=== PATIENT | female | born 1990 | race Caucasian/White ===

== ENCOUNTER 2017-01-30 08:18 | Outpatient (CLI) | payer MEDICAID ==
[2017-01-30 13:20] LABS: APPEARANCE,URINE SLIGHTLY-CLOUDY; BILIRUBIN,URINE NEGATIVE (NEGATIVE); GLUCOSE, URINE NEGATIVE (NEGATIVE); KETONES,URINE NEGATIVE (NEGATIVE); LEUKOCYTE ESTERASE,URINE TRACE (NEGATIVE); NITRITE,URINE NEGATIVE (NEGATIVE); PROTEIN,URINE NEGATIVE (NEGATIVE); URINE SPECIFIC GRAVITY 1.009; UROBILINOGEN,URINE NEGATIVE mg/dL (<2.0)
[2017-01-30 13:44] LABS: URINE BARBITURATES SCREEN NEGATIVE; URINE METHADONE SCREEN NEGATIVE; URINE OPIATES LOW NEGATIVE; URINE PHENCYCLIDINE SCREEN NEGATIVE
== END 2017-01-30 13:40 | disposition home or self-care (01) ==
LOC: LC 08:18
PROVIDERS: ATTEND Obstetrics & Gynecology
DX: O48.0 Post-term pregnancy (principal); Z3A.40 40 weeks gestation of pregnancy
CPT/HCPCS: 59025; 80307; 81005

== ENCOUNTER 2017-02-01 09:38 | Inpatient (IN) | payer MEDICAID ==
--- NOTE | 2017-02-01 09:47 | Non Stress Test Report ---
Non Stress Test Datetime Report Generated by CPN: 02/01/2017 09:47 DEMOGRAPHIC EGA NST: 40.2 INDICATION Indication for Study: Other Indication for Study (NST) Other: Rule out labor VITAL SIGNS Temperature - NST: 97.7 Pulse - NST: 96 RESP - NST: 19 NBPSYS NST: 133 NBPDIA NST: 82 MONITORING Monitor Explained: Monitor Explained; Test Explained; Patient Verbalized Understanding Time on Monitor: 01/30/2017 09:30 Time off Monitor: 01/30/2017 09:55 NST Duration: 25 NST INTERVENTIONS NST Interventions: PO Hydration Physician Notified NST: C. Schroeder, CNM BABY A: [id number] BABY A Movement : Present Contraction Frequency : x0 FHR Baseline : 125 Accelerations : 15X15 Decelerations : None Variability : Moderate 6-25bpm NST Review: Meets Criteria for Reactive NST NST Review and Verified By : Regina Gaines RNC NST Results: Reactive NST REPORT Report Trigger: Send Report
[2017-02-01] MEDS ORDERED: RINGERS SOLUTION,LACTATED 1,000 ML IV ONE (11:54)
[2017-02-01] MEDS ORDERED: RINGERS SOLUTION,LACTATED 1,000 ML IV PRN (11:54)
[2017-02-01] MEDS ORDERED: RINGERS SOLUTION,LACTATED 300 ML IV ONE (11:57)
[2017-02-01] MEDS ORDERED: OXYTOCIN/NORMAL SALINE 20 UNIT/1,000 ML RTUINJ ONE ×2 (13:19→19:15)
[2017-02-01 13:21] LABS: ABSOLUTE EOSINOPHILS # (AUTO) 0.1 10^3/uL (0.0-0.6); ABSOLUTE LYMPHOCYTES (AUTO) 1.5 10^3/uL (0.5-4.7); ABSOLUTE MONOCYTES (AUTO) 0.5 10^3/uL (0.1-1.4); ABSOLUTE NEUT (AUTO) 3.4 10^3/uL (1.7-8.2); BASOPHILS % (AUTO) 0.5 % (0-2); EOSINOPHILS % (AUTO) 1.2 % (0-6); HEMATOCRIT 34.5 % (36.0-47.0); HEMOGLOBIN 11.4 g/dL (12.0-15.5); HGB HCT DIFFERENCE -0.3; LYMPHOCYTES % (AUTO) 26.6 % (13-45); MEAN CORPUSCULAR HEMOGLOBIN 25.3 pg (27.0-33.4); MEAN CORPUSCULAR VOLUME 77 fl (80-97); MONOCYTES % (AUTO) 9.6 % (3-13); RED BLOOD COUNT 4.48 10^6/uL (3.72-5.28); RED CELL DISTRIBUTION WIDTH 15.2 % (11.5-14.0); SEGMENTED NEUTROPHILS % (AUTO) 62.1 % (42-78); WHITE BLOOD COUNT 5.5 10^3/uL (4.0-10.5)
[2017-02-01] MEDS: RINGERS SOLUTION,LACTATED 1,000 ML IV PRN ×2 (13:25→20:58)
[2017-02-01 13:31] LABS: APPEARANCE,URINE SLIGHTLY-CLOUDY; BILIRUBIN,URINE NEGATIVE (NEGATIVE); GLUCOSE, URINE NEGATIVE (NEGATIVE); KETONES,URINE NEGATIVE (NEGATIVE); LEUKOCYTE ESTERASE,URINE NEGATIVE (NEGATIVE); NITRITE,URINE NEGATIVE (NEGATIVE); PROTEIN,URINE NEGATIVE (NEGATIVE); URINE SPECIFIC GRAVITY 1.011; UROBILINOGEN,URINE NEGATIVE mg/dL (<2.0)
[2017-02-01 13:47] LABS: URINE BARBITURATES SCREEN NEGATIVE; URINE METHADONE SCREEN NEGATIVE; URINE OPIATES LOW NEGATIVE; URINE PHENCYCLIDINE SCREEN NEGATIVE
[2017-02-01] MEDS ORDERED: EPHEDRINE SULFATE INJ 50 MG/1 ML AMPULE ONE (16:49)
[2017-02-01] MEDS ORDERED: FENTANYL CITRATE INJ/PF 100 MCG/2 ML AMPUL ONE (16:49)
[2017-02-01] MEDS ORDERED: BUPIVACAINE HCL 0.25 % INJ/PF (2.5 MG/1 ML) 30 ML VIAL ONE (16:50)
[2017-02-01] MEDS ORDERED: FENTANYL/BUPIVACAINE/NS/PF 200 MCG/100 ML RTUINJ EPI ONE (16:50)
[2017-02-01] MEDS ORDERED: PHENYLEPHRINE HCL INJ/PF 10 MG/1 ML SDV ONE (16:50)
[2017-02-01] MEDS ORDERED: MISOPROSTOL 0.2 MG TABLET ONE (19:15)
[2017-02-01] MEDS ORDERED: LIDOCAINE 1% INJ-PF (10 MG/ML) 30 ML SDV ONE (19:15)
[2017-02-01] MEDS ORDERED: DIPH/PERTUSS(ACELL)/TETANUS VAC/PF 0.5 ML SYR (>=10YO) IM PRN (20:11)
[2017-02-01] MEDS ORDERED: ZOLPIDEM TARTRATE 5 MG TABLET PO PRN (20:11)
[2017-02-01] MEDS ORDERED: BENZOCAINE/MENTHOL AEROSOL SPRAY 56 ML TOP PRN (20:11)
[2017-02-01] MEDS ORDERED: OXYTOCIN/NORMAL SALINE 20 UNIT/1,000 ML RTUINJ IV PRN (20:11)
[2017-02-01] MEDS ORDERED: DIBUCAINE 1% OINTMENT 28 GM TP PRN (20:11)
[2017-02-01] MEDS ORDERED: MEASLES,MUMPS&RUBELLA VACC/PF 0.5 ML VIAL SUBCUT PRN (20:11)
[2017-02-01] MEDS ORDERED: ACETAMINOPHEN WITH CODEINE #3 TABLET PO PRN ×2 (20:11)
[2017-02-01] MEDS ORDERED: LIDOCAINE 2%/EPINEPHRINE INJ 20 ML VIAL ONE (20:21)
[2017-02-01] MEDS ORDERED: SODIUM BICARBONATE 8.4% INJ 50 MEQ/50 ML DISP.SYRIN ONE (20:21)
[2017-02-01] MEDS ORDERED: MIDAZOLAM 2 MG/2 ML INJ ONE (20:40)
--- NOTE | 2017-02-01 22:49 | Delivery Summary ---
Del Sum A-C Datetime Report Generated by CPN: 02/01/2017 22:48 DELIVERY PERSONNEL DELIVERY PERSONNEL: [id number] Delivery Doctor:: Peyton Oliveira CNM Labor and Delivery Nurse:: Pamela Crawford RNnetwork engineer Nurse:: Julianna Warner RN Neonatal Nurse Practitioner:: JAHAIRA Du Nursery Nurse:: Katlin Adamson RN MATERNAL INFORMATION Delivery Anesthesia: Epidural Medications After Delivery: Pitocin Drip 20 Units/1000ml NSS Estimated Blood Loss (ml): 350 Maternal Complications: None Provider Comments: of viable male infant. Head, body, and shoulders delivered without difficulty. Infant with spontaneous cry and repsirations to maternal abdomen. Cord clamped X2, cut free by pts after 2 min delay. Spontaneous delivery of placenta, via durbin mechanism appears intact, 3 VC. Vagina and perineum inspected, deep vaginal laceration noted, Dr. Cabrera to bedside for repair. Hemostasis acheived with external fundal massage and IV pitocin. LABOR SUMMARY EDC: 01/28/2017 00:00 No. Babies in Womb: 1 Attempted: No Labor Anesthesia: Epidural LABOR INFORMATION Reason for Induction: Not Applicable Onset of Labor: 02/01/2017 10:59 Complete Dilatation: 02/01/2017 19:24 Oxytocin: Augmentation Group B Beta Strep: NEGATIVE Antibiotics # of Doses: N/A Antibiotics Time of Last Dose: N/A Name of Antibiotic Given: N/A Steroids Given: None Reason Steroids Not Administered: Not Applicable MEMBRANES Membranes Rupture Method: Spontaneous Rupture of Membranes: 02/01/2017 10:45 Length of Rupture (hr): 8.95 Amniotic Fluid Color: Bloody Amniotic Fluid Amount: Small Amniotic Fluid Odor: Normal STAGES OF LABOR Stage 1 hr: 8 Stage 1 min: 25 Stage 2 hr: 0 Stage 2 min: 18 Stage 3 hr: 0 Stage 3 min: 4 Total Time in Labor hr: 8 Total Time in Labor min: 47 VAGINAL DELIVERY Episiotomy: None Laceration Extension: Third Degree Laceration Type: Vaginal Laceration Repair: Yes Laceration Repair Note: repaired by Dr. Cabrera, using 2-0 chromic in usual fashionusing lidocaine for anesthisia and epidural, Anesthesologist to bedside to assist with pain control. Sponge Count Correct: N/A; Yes Sharps Count Correct: Yes CSECTION DELIVERY Primary Indication: N/A Secondary Indication: N/A CSection Incidence: N/A Labor: N/A Elective: N/A CSection Incision: N/A BABY A INFORMATION Infant Delivery Date/Time: 02/01/2017 19:42 Method of Delivery: Vaginal Born in Route : No : N/A Forceps: N/A Vacuum Extraction: N/A Shoulder Dystocia : No PRESENTATION/POSITION BABY A Presentation: Cephalic Cephalic Presentation: Vertex Vertex Position: Right Occipital Anterior Breech Presentation: N/A PLACENTA INFORMATION BABY A Placenta Delivery Time : 02/01/2017 19:46 Placenta Method of Delivery: Spontaneous Placenta Status: Delivered SCORES BABY A Heart Rate 1 min: >100 bpm Resp Effort 1 min: Good Cry Reflex Irritability 1 min: Cough or Sneeze or Pulls Away Muscle Tone 1 min: Active Motion Color 1 min: Body [place], Extremities Blue Resuscitation Effort 1 min: N/A SCORE 1 MIN: 9 Heart Rate 5 min: >100 bpm Resp Effort 5 min: Good Cry Reflex Irritability 5 min: Cough or Sneeze or Pulls Away Muscle Tone 5 min: Active Motion Color 5 min: Body [place], Extremities Blue Resuscitation Effort 5 min: N/A SCORE 5 MIN: 9 INFANT INFORMATION BABY A Gestational Age at Delivery: 40.4 Gestational Status: Full Term- 39- 40.6 Weeks Outcome : Liveborn Infant Condition : Stable Infant Sex: Male IDENTIFICATION BABY A Infant Verification Date/Time: 02/01/2017 19:49 ID Band Number: [id number] Mother's Name Verified: Yes Infant RN Verifying : RN Yessi Additional Verifying Personnel: [employer] WEIGHT/LENGTH BABY A Infant Birthweight (gm): 3475 Weight (lb): 7 Infant Weight (oz): 11 Length (in): 20.00 Infant Length (cm): 50.80 CORD INFORMATION BABY A No. Cord Vessels: 3 Nuchal Cord : N/A Cord Blood Taken: Yes-For Storage (Mom's Blood type +) Suction: None ASSESSMENT BABY A Infant Complications: None Physical Findings at Delivery: Within Normal Limits Infant Respirations: Appears Normal Skin to Skin: Yes Skin to Skin Time (min): 25 BABY B INFORMATION : N/A SIGNATURES Assignment: Daphnie Cabrera MD Signature: with User ID: [email or web address] : with User ID: [email or web address]
--- NOTE | 2017-02-01 23:21 | Admission Physical ---
Datetime Report Generated by CPN: 02/01/2017 23:21 CURRENT ADMISSION Hx Assessment: The History has been Reviewed and is Current Chief Complaint: Sent from OB Office for Evaluation and Treatment - Please Specify Chief Complaint Other: for nst, srom while here Indication for Induction: Post Dates Admit Plan: Admit to Unit; Initiate Labor Augmentation Protocol ALLERGIES Medication Allergies: No Medication Allergies: No Known Allergies (01/30/2017) Medication Allergies: No Known Allergies (08/26/2012) Latex: No Latex Allergies OBSTETRICAL HISTORY EDC: 01/28/2017 00:00 : 1 Para: 0 Gestational Diabetes: No Rh Sensitization: No Incompetent Cervix: No RYLAN: No Infertility: No ART Treatment: No Uterine Anomaly: No IUGR: No Hx Previous C/S: No Macrosomia: No Hx Loss/Stillborn: No PIH: No Hx : No Placenta Previa/Abruption: No Depression/PP Depression: No PTL/PROM: No Post Hemorrhage: No Obstetrical History Comments: G1 current SEE RECORDS Alcohol: No Marijuana : No Cocaine: No Other Illicit Drugs: No Cigarettes: Never Smoker. [id number] MEDICAL HISTORY Diabetes: No Blood Transfusion: No Pulmonary Disease (Asthma, TB): No Breast Disease: No Hypertension: No Industrial Custodian Surgery: No Heart Disease: No Hosp/Surgery: No Autoimmune Disorder: No Anesthetic Complications: No Kidney Disease: No Abnormal Pap Smear: No Neuro/Epilepsy: No Psychiatric Disorders: No Other Medical Diseases: No Hepatitis/Liver Disease: No Significant Family History: No Varicosities/Phlebitis: No Trauma/Violence : No Thyroid Dysfunction: No INFECTIOUS HISTORY Gonorrhea: No Genital Herpes: No Chlamydia: No Tuberculosis: No Syphilis: No Hepatitis: No HIV/AIDS Exposure: No Rash or Viral Illness: No HPV: No PHYSICAL EXAM General: Normal HEENT: Normal Neurologic: Normal Thyroid: Deferred Heart: Normal Lungs: Normal Breast: Normal Back: Normal Abdomen: Normal Genitourinary Exam: Normal Extremities: Normal DTRs: Normal Pelvic Type: Adequate Vital Signs: Reviewed VAGINAL EXAM Dilatation: 4 Effacement: 80 Station: -1 Contraction Comments: irregular FETUS A EGA: 40.4 Monitoring: External US FHR- Baseline: 120 Variability: Moderate 6-25bpm Accelerations: 15X15 Decelerations: None FHR Category: Category I Estimated Weight (gm): 3800 Presentation: Vertex Admit Comment: Pt here for repeat nst, was reactive and pt was going to be discharge, SROM, clear fluid with bloody show, + fern Admit to L _ D Pitocin Pt may have epidural GBS neg PLANS FOR LABOR AND DELIVERY Labor and Delivery: None Pain Management: Epidural Feeding Preference: Breast Benefit of Breast Feed Discussed: Yes Circumcision: No INFORMED CONSENT Assignment: Daphnie Cabrera MD Signature: with User ID: [email or web address] : with User ID: [email or web address]
[2017-02-02] MEDS: IBUPROFEN 800 MG TABLET PO SCH ×4 (00:19→21:25)
[2017-02-02 07:59] LABS: HEMATOCRIT 28.9 % (36.0-47.0); HEMOGLOBIN 9.7 g/dL (12.0-15.5); HGB HCT DIFFERENCE 0.2; MEAN CORPUSCULAR HEMOGLOBIN 25.6 pg (27.0-33.4); MEAN CORPUSCULAR HGB CONC 33.4 g/dL (32.0-36.0); MEAN CORPUSCULAR VOLUME 77 fl (80-97); RED BLOOD COUNT 3.78 10^6/uL (3.72-5.28); WHITE BLOOD COUNT 6.6 10^3/uL (4.0-10.5)
[2017-02-02] MEDS: PRENATAL VITAMIN W-O CA NO5/FE FUMARATE/FA CAPSULE PO SCH (09:47)
[2017-02-02] MEDS: DOCUSATE SODIUM 100 MG CAPSULE PO SCH ×2 (09:47→18:09)
[2017-02-02] MEDS: FERROUS SULFATE 325 MG TABLET PO SCH ×2 (09:48→18:09)
[2017-02-02] MEDS: SENNOSIDES/DOCUSATE 8.6-50 MG 1 EACH TABLET PO SCH (09:48)
--- NOTE | 2017-02-02 12:09 | PDOC PROGRESS REPORT ---
Subjective-OB Subjective: Post Delivery Day: 1 24 year old. Denies any needs at this time, lochia is stable, pain well controlled, voiding without difficulty. Physical Exam (OB) Vital Signs: Temp Pulse Resp BP Pulse Ox 97.7 F 64 16 125/67 100 02/02/17 07:39 02/02/17 07:39 02/02/17 07:39 02/02/17 07:39 02/02/17 07:39 Intake & Output 02/01/17 02/02/17 02/03/17 06:59 06:59 06:59 Intake Total 250 300 Balance 250 300 Weight 98 kg - Lochia Lochia Amount: Scant < 10 ml Lochia Color: Rubra/Red - Abdomen Description: Tender, Soft Hernia Present: No Fundal Description: Firm, Midline Fundal Height: u/u - u/2 Objective-Diagnostic Laboratory: 02/02/17 07:16 02/01/17 02/01/17 02/01/17 12:15 12:55 12:55 WBC 5.5 RBC 4.48 Hgb 11.4 L Hct 34.5 L MCV 77 L MCH 25.3 L MCHC 33.0 RDW 15.2 H Plt Count 199 Seg Neutrophils % 62.1 Lymphocytes % 26.6 Monocytes % 9.6 Eosinophils % 1.2 Basophils % 0.5 Absolute Neutrophils 3.4 Absolute Lymphocytes 1.5 Absolute Monocytes 0.5 Absolute Eosinophils 0.1 Absolute Basophils 0.0 Urine Color YELLOW Urine Appearance SLIGHTLY-CLOUDY Urine pH 5.0 Ur Specific [place] 1.011 Urine Protein NEGATIVE Urine Glucose (UA) NEGATIVE Urine Ketones NEGATIVE Urine Blood MODERATE H Urine Nitrite NEGATIVE Ur Leukocyte Esterase NEGATIVE Blood Type A POSITIVE Antibody Screen NEGATIVE 02/02/17 07:16 WBC 6.6 RBC 3.78 Hgb 9.7 L Hct 28.9 L MCV 77 L MCH 25.6 L MCHC 33.4 RDW 15.0 H Plt Count 171 Seg Neutrophils % Lymphocytes % Monocytes % Eosinophils % Basophils % Absolute Neutrophils Absolute Lymphocytes Absolute Monocytes Absolute Eosinophils Absolute Basophils Urine Color Urine Appearance Urine pH Ur Specific [place] Urine Protein Urine Glucose (UA) Urine Ketones Urine Blood Urine Nitrite Ur Leukocyte Esterase Blood Type Antibody Screen Assessment and Plan(PN) - Assessment and Plan (1) Vaginal delivery Is this a current diagnosis for this admission?: Yes Plan: routine pp care (2) Acute blood loss anemia Is this a current diagnosis for this admission?: Yes Plan: ferrous sulfate (3) Vaginal laceration Qualifiers: Encounter type: initial encounter Qualified Code(s): S31.41XA - Laceration without foreign body of vagina and vulva, initial encounter Is this a current diagnosis for this admission?: Yes Plan: stool softners on d/c - Time Spent with Patient Time with patient: Less than 15 minutes Critical Time spent with patient: Less than 15 minutes Medications reviewed and adjusted accordingly: Yes - Disposition Anticipated Discharge: Home Within: within 24 hours
[2017-02-03] MEDS: IBUPROFEN 800 MG TABLET PO SCH ×2 (05:55→13:41)
[2017-02-03 08:46] VITALS: BP 116/71
[2017-02-03] MEDS: DOCUSATE SODIUM 100 MG CAPSULE PO SCH (09:14)
[2017-02-03] MEDS: PRENATAL VITAMIN W-O CA NO5/FE FUMARATE/FA CAPSULE PO SCH (09:14)
[2017-02-03] MEDS: SENNOSIDES/DOCUSATE 8.6-50 MG 1 EACH TABLET PO SCH (09:14)
[2017-02-03] MEDS: FERROUS SULFATE 325 MG TABLET PO SCH (09:15)
--- NOTE | 2017-02-03 10:46 | PDOC DISCHARGE SUMMARY ---
Final Diagnosis Discharge Date: 02/03/17 - Final Diagnosis (1) Vaginal delivery Is this a current diagnosis for this admission?: Yes (2) Acute blood loss anemia Is this a current diagnosis for this admission?: Yes (3) Vaginal laceration Is this a current diagnosis for this admission?: Yes Discharge Data - Discharge Medication Home Medications: Cmb#95/Iron/FA/Dha [ + Dha Combo Pack] 1 tab PO DAILY 01/30/17 Acetaminophen with Codeine [Tylenol #3 Tablet] 2 each PO Q4HP PRN #20 tablet 07/21 Docusate Sodium [Colace 100 mg Capsule] 100 mg PO BID #60 capsule 02/03/17 Ferrous Sulfate [Feosol 325 mg Tablet] 325 mg PO BID #60 tablet 02/03/17 Ibuprofen [Motrin 800 mg Tablet] 800 mg PO Q8 #60 tablet 02/03/17 Gestational Age: 40.4 Reason(s) for Admission: Onset of Labor Procedures: NST Intrapartum Procedure(s): Spontaneous Vaginal Delivery - [place] Data Baby 1 Female at 1 minute: 9 at 5 minutes: 9 Weight: 3475 kg Home with Mother: Yes Complications: No - Diagnosis Test Laboratory: Temp Pulse Resp BP Pulse Ox 99.8 F 79 15 116/71 100 02/03/17 08:32 02/03/17 08:32 02/03/17 08:32 02/03/17 08:32 02/03/17 08:32 02/01/17 02/01/17 02/02/17 12:15 12:55 07:16 RBC 4.48 3.78 Hgb 11.4 L 9.7 L Hct 34.5 L 28.9 L Urine Opiates Screen NEGATIVE - Discharge information/Instructions Discharge Activity: Activity As Tolerated, No Driving, Pelvic Rest, No tub bath Discharge Diet: Regular Disposition: HOME, SELF-CARE Follow up with: [facility] in: 4, Weeks
--- NOTE | 2017-03-02 16:45 | Delivery Summary ---
Del Sum A-C Datetime Report Generated by CPN: 03/02/2017 16:44 DELIVERY PERSONNEL DELIVERY PERSONNEL: [id number] Delivery Doctor:: Peyton Oliveira CNM Labor and Delivery Nurse:: Pamela Crawford RNhearing stenographer Nurse:: Julianna Warner RN Neonatal Nurse Practitioner:: JAHAIRA Du Nursery Nurse:: Katlin Adamson RN MATERNAL INFORMATION Delivery Anesthesia: Epidural Medications After Delivery: Pitocin Drip 20 Units/1000ml NSS Estimated Blood Loss (ml): 350 Maternal Complications: None Provider Comments: of viable male infant. Head, body, and shoulders delivered without difficulty. Infant with spontaneous cry and repsirations to maternal abdomen. Cord clamped X2, cut free by pts after 2 min delay. Spontaneous delivery of placenta, via durbin mechanism appears intact, 3 VC. Vagina and perineum inspected, deep vaginal laceration noted, Dr. Cabrera to bedside for repair. Hemostasis acheived with external fundal massage and IV pitocin. LABOR SUMMARY EDC: 01/28/2017 00:00 No. Babies in Womb: 1 Attempted: No Labor Anesthesia: Epidural LABOR INFORMATION Reason for Induction: Not Applicable Onset of Labor: 02/01/2017 10:59 Complete Dilatation: 02/01/2017 19:24 Oxytocin: Augmentation Group B Beta Strep: NEGATIVE Antibiotics # of Doses: N/A Antibiotics Time of Last Dose: N/A Name of Antibiotic Given: N/A Steroids Given: None Reason Steroids Not Administered: Not Applicable MEMBRANES Membranes Rupture Method: Spontaneous Rupture of Membranes: 02/01/2017 10:45 Length of Rupture (hr): 8.95 Amniotic Fluid Color: Bloody Amniotic Fluid Amount: Small Amniotic Fluid Odor: Normal STAGES OF LABOR Stage 1 hr: 8 Stage 1 min: 25 Stage 2 hr: 0 Stage 2 min: 18 Stage 3 hr: 0 Stage 3 min: 4 Total Time in Labor hr: 8 Total Time in Labor min: 47 VAGINAL DELIVERY Episiotomy: None Laceration #1: Vaginal Laceration Extension #1: Third Degree, IIIa (Less than 50 percent ext anal sphincter thickness torn) Laceration Repair: Yes Laceration Repair Note: repaired by Dr. Cabrera, using 2-0 chromic in usual fashionusing lidocaine for anesthisia and epidural, Anesthesologist to bedside to assist with pain control. Sponge Count Correct: N/A; Yes Sponge Count Correct: N/A Sharps Count Correct: Yes CSECTION DELIVERY Primary Indication: N/A Primary Indication: N/A Secondary Indication: N/A Secondary Indication: N/A CSection Incidence: N/A Labor: N/A Elective: N/A CSection Incision: N/A CSection Incision: N/A BABY A INFORMATION Infant Delivery Date/Time: 02/01/2017 19:42 Method of Delivery: Vaginal Born in Route : No : N/A Forceps: N/A Vacuum Extraction: N/A Shoulder Dystocia : No PRESENTATION/POSITION BABY A Presentation: Cephalic Presentation: Cephalic Cephalic Presentation: Vertex Vertex Position: Right Occipital Anterior Breech Presentation: N/A PLACENTA INFORMATION BABY A Placenta Delivery Time : 02/01/2017 19:46 Placenta Method of Delivery: Spontaneous Placenta Status: Delivered SCORES BABY A Heart Rate 1 min: >100 bpm Resp Effort 1 min: Good Cry Reflex Irritability 1 min: Cough or Sneeze or Pulls Away Muscle Tone 1 min: Active Motion Color 1 min: Body [place], Extremities Blue Resuscitation Effort 1 min: N/A SCORE 1 MIN: 9 Heart Rate 5 min: >100 bpm Resp Effort 5 min: Good Cry Reflex Irritability 5 min: Cough or Sneeze or Pulls Away Muscle Tone 5 min: Active Motion Color 5 min: Body [place], Extremities Blue Resuscitation Effort 5 min: N/A SCORE 5 MIN: 9 INFANT INFORMATION BABY A Gestational Age at Delivery: 40.4 Gestational Status: Full Term- 39- 40.6 Weeks Infant Outcome : Liveborn Condition : Stable Infant Sex: Male Sex: Male IDENTIFICATION BABY A Verification Date/Time: 02/01/2017 19:49 ID Band Number: [id number] Mother's Name Verified: Yes RN Verifying Infant: RN Kossmann Additional Verifying Personnel: [employer] DESIGNER Evelyn WEIGHT/LENGTH BABY A Infant Birthweight (gm): 3475 Weight (lb): 7 Weight (oz): 11 Infant Length (in): 20.00 Length (cm): 50.80 CORD INFORMATION BABY A No. Cord Vessels: 3 Nuchal Cord : N/A Cord Blood Taken: Yes-For Storage (Mom's Blood type +) Suction: None ASSESSMENT BABY A Infant Complications: None Physical Findings at Delivery: Within Normal Limits Infant Respirations: Appears Normal Skin to Skin: Yes Skin to Skin Time (min): 25 BABY B INFORMATION : N/A SIGNATURES Assignment: Daphnie Cabrera MD Signature: with User ID: [email or web address] Signature: with User ID: [email or web address]
== END 2017-02-03 14:43 | disposition home or self-care (01) | DRG 775 ==
LOC: LC 09:38 → LR 12:03 → 2S 23:19
PROVIDERS: ADMIT Obstetrics & Gynecology; ATTEND Obstetrics & Gynecology
PROC: 10E0XZZ Delivery of Products of Conception, External Approach (ICD-10-PCS; principal; 2017-02-01)
PROC: 0DQR0ZZ Repair Anal Sphincter, Open Approach (ICD-10-PCS; 2017-02-01)
PROC: 4A1HXCZ Monitoring of Products of Conception, Cardiac Rate, External Approach (ICD-10-PCS; 2017-02-01)
DX: O48.0 Post-term pregnancy (principal); D62 Acute posthemorrhagic anemia; O70.21 Third degree perineal laceration during delivery, IIIa; O99.02 Anemia complicating childbirth; Z3A.40 40 weeks gestation of pregnancy; Z37.0 Single live birth
CPT/HCPCS: 36415; 80307; 81005; 85025; 85027; 86592; 86850; 86900; 86901; J2250; J2370; J2590; J3010; J3490; Q0114

== ENCOUNTER → 2018-09-09 | Outpatient (CLI) | payer SELFPAY ==
--- NOTE | 2018-09-09 16:28 | RADIOLOGY REPORT (SQ) ---
EXAM DESCRIPTION: U/S [id number] TRNABD 1GES W/ODOP COMPLETED DATE/TIME: 09/09/2018 3:25 pm REASON FOR STUDY: Z34.81 ENCOUNTER FOR SUPRVSN OF NORMAL , FIRST TRIMESTER Z34.81 ENCOUNTE R FOR SUPRVSN OF NORMAL , FIRST TRIM COMPARISON: None. TECHNIQUE: Transvaginal static and realtime grayscale images acquired of the pelvis. Additional garrett cted spectral and color Doppler images recorded. All images stored on PACs. bHCG: Not available CLINICAL DATES: [place]: 04/20/2019. EGA: 8 weeks 1 day LIMITATIONS: None. FINDINGS: FETUS: Single Living intrauterine . ULTRASOUND EGA: 7 weeks 3 days. ULTRASOUND [place]: 04/25/2019 EFW: Not applicable less than 20 weeks. CRL: 1.25 cm FHR: 141 beats per minute. SURVEY: No visualized anomalies. AMNIOTIC FLUID: Adequate amount. PLACENTA: Not yet developed due to early gestation. SUBCHORIONIC BLEED: No SIZE OF BLEED: Not applicable. UTERUS: The uterus measures 9.3 x 7.7 x 6.3 cm. No masses. No anomalies. CERVICAL LENGTH: 2.4 cm Closed. RIGHT ADNEXA: The right ovary measures 3.0 x 1.9 x 1.9 cm. Normal ovary with normal vascular flow. No adnexal free fluid. No adnexal masses. LEFT ADNEXA: The left ovary measures 3.0 x 2.3 x 2.8 cm. A 2.2 x 1.8 x 1.9 cm simple appearing anec hoic structure in the left ovary may represent a dominant follicle or corpus luteum cyst of . Small amount of free fluid in the adnexal. FREE FLUID: See above. OTHER: No other significant finding. IMPRESSION: LIVING INTRAUTERINE . EGA: 7 weeks 3 days Trimester of : First - 0 to 13 weeks. TECHNICAL DOCUMENTATION: JOB ID: [id number]- All Rights Reserved rev-10/19 Reading location - IP/workstation name: [email or web address]
== END ==
LOC: RAD 14:42
PROVIDERS: ATTEND Midwife
DX: Z34.81 Encounter for supervision of other normal pregnancy, first trimester (principal); Z3A.01 Less than 8 weeks gestation of pregnancy
CPT/HCPCS: 76801

== ENCOUNTER 2019-04-27 07:57 | Inpatient (IN) | payer MEDICAID ==
[2019-04-27 08:35] LABS: APPEARANCE,URINE SLIGHTLY-CLOUDY; BILIRUBIN,URINE NEGATIVE (NEGATIVE); COLOR,URINE YELLOW; GLUCOSE, URINE NEGATIVE (NEGATIVE); KETONES,URINE NEGATIVE (NEGATIVE); LEUKOCYTE ESTERASE,URINE SMALL (NEGATIVE); NITRITE,URINE NEGATIVE (NEGATIVE); PROTEIN,URINE 30 mg/dL (NEGATIVE)
[2019-04-27 09:00] LABS: URINE AMPHETAMINES SCREEN NEGATIVE; URINE BARBITURATES SCREEN NEGATIVE; URINE BENZODIAZEPINES SCREEN NEGATIVE; URINE COCAINE SCREEN NEGATIVE; URINE MARIJUANA (THC) SCREEN NEGATIVE; URINE METHADONE SCREEN NEGATIVE; URINE PHENCYCLIDINE SCREEN NEGATIVE
[2019-04-27] MEDS ORDERED: OXYTOCIN 10 UNIT/ML VIAL ONE (09:28)
[2019-04-27] MEDS ORDERED: LIDOCAINE 1% INJ-PF (10 MG/ML) 30 ML SDV ONE (09:29)
[2019-04-27] MEDS ORDERED: OXYTOCIN/NORMAL SALINE 20 UNIT/1,000 ML RTUINJ ONE (09:29)
[2019-04-27] MEDS ORDERED: MISOPROSTOL 0.2 MG TABLET ONE (09:29)
[2019-04-27 09:51] LABS: ABSOLUTE EOSINOPHILS # (AUTO) 0.1 10^3/uL (0.0-0.6); ABSOLUTE LYMPHOCYTES (AUTO) 3.6 10^3/uL (0.5-4.7); ABSOLUTE MONOCYTES (AUTO) 0.6 10^3/uL (0.1-1.4); ABSOLUTE NEUT (AUTO) 5.2 10^3/uL (1.7-8.2); BASOPHILS % (AUTO) 0.4 % (0-2); EOSINOPHILS % (AUTO) 1.1 % (0-6); HEMOGLOBIN 11.7 g/dL (12.0-15.5); LYMPHOCYTES % (AUTO) 37.5 % (13-45); MEAN CORPUSCULAR HEMOGLOBIN 24.8 pg (27.0-33.4); MEAN CORPUSCULAR HGB CONC 33.4 g/dL (32.0-36.0); MEAN CORPUSCULAR VOLUME 74 fl (80-97); MONOCYTES % (AUTO) 6.2 % (3-13); PLATELET COUNT 203 10^3/uL (150-450); RED BLOOD COUNT 4.72 10^6/uL (3.72-5.28); RED CELL DISTRIBUTION WIDTH 15.6 % (11.5-14.0); SEGMENTED NEUTROPHILS % (AUTO) 54.8 % (42-78); TOTAL CELLS COUNTED % (AUTO) 100 %; WHITE BLOOD COUNT 9.5 10^3/uL (4.0-10.5)
[2019-04-27] MEDS ORDERED: EPHEDRINE SULFATE INJ 50 MG/1 ML AMPULE ONE (09:55)
[2019-04-27] MEDS ORDERED: PHENYLEPHRINE HCL INJ/PF 10 MG/1 ML SDV ONE (09:55)
[2019-04-27] MEDS ORDERED: FENTANYL CITRATE INJ/PF 100 MCG/2 ML AMPUL ONE (09:55)
[2019-04-27] MEDS ORDERED: BUPIVACAINE HCL 0.25 % INJ/PF (2.5 MG/1 ML) 30 ML VIAL ONE (09:56)
[2019-04-27] MEDS ORDERED: FENTANYL/BUPIVACAINE/NS/PF 300 MCG/150 ML RTUINJ EPI ONE (09:56)
--- NOTE | 2019-04-27 10:17 | Admission Physical ---
Datetime Report Generated by CPN: 04/27/2019 10:17 CURRENT ADMISSION Chief Complaint: Uterine Contractions; Suspected Ruptured Membranes Indication for Induction: Not Applicable Admit Impression : Postterm, Intrauterine Admit Plan: Admit to Unit; Initiate Labor Augmentation Protocol ALLERGIES Medication Allergies: No Medication Allergies: No Known Allergies (01/30/2017) Latex: No Latex Allergies Food Allergies: n/a Environmental Allergies: n/a OBSTETRICAL HISTORY EDC: 04/20/2019 00:00 : 2 Para: 1 Term: 1 : 0 SAB: 0 IAB: 0 Ectopic: 0 Livin Cesareans: 0 VBACs: 0 Multiple Births: 0 Gestational Diabetes: No Rh Sensitization: No Incompetent Cervix: No RYLAN: No Infertility: No ART Treatment: No Uterine Anomaly: No IUGR: No Hx Previous C/S: No Macrosomia: No Hx Loss/Stillborn: No PIH: No Hx : No Placenta Previa/Abruption: No Depression/PP Depression: No PTL/PROM: No Post Hemorrhage: No Current Procedures: Ultrasound Obstetrical History Comments: G1- G2- current SEE RECORDS Alcohol: No Marijuana : No Cocaine: No Other Illicit Drugs: No Cigarettes: Never Smoker. [id number] MEDICAL HISTORY Diabetes: No Blood Transfusion: No Pulmonary Disease (Asthma, TB): No Breast Disease: No Hypertension: No Clinical Outcomes Manager Surgery: No Heart Disease: No Hosp/Surgery: Yes Autoimmune Disorder: No Anesthetic Complications: No Kidney Disease: No Abnormal Pap Smear: No Neuro/Epilepsy: No Psychiatric Disorders: No Other Medical Diseases: No Hepatitis/Liver Disease: No Significant Family History: No Varicosities/Phlebitis: No Trauma/Violence : No Thyroid Dysfunction: No Medical History Comments: childbirth INFECTIOUS HISTORY Gonorrhea: No Genital Herpes: No Chlamydia: No Tuberculosis: No Syphilis: No Hepatitis: No HIV/AIDS Exposure: No Rash or Viral Illness: No HPV: No PHYSICAL EXAM General: Normal HEENT: Normal Neurologic: Normal Thyroid: Normal Heart: Normal Lungs: Normal Breast: Normal Back: Normal Abdomen: Normal Genitourinary Exam: Normal Extremities: Normal DTRs: Normal Pelvic Type: Adequate Vital Signs: Reviewed VAGINAL EXAM Dilatation: 5 Effacement: 80 Station: -2 MEMBRANES Membranes: Ruptured Amniotic Fluid Color: Clear FETUS A EGA: 41.0 Monitoring: External US FHR- Baseline: 130 Variability: Moderate 6-25bpm Accelerations: 15X15 Decelerations: None FHR Category: Category I Estimated Weight (gm): 4000 Presentation: Vertex PLANS FOR LABOR AND DELIVERY Labor and Delivery: None Pain Management: Epidural Feeding Preference: Breast Benefit of Breast Feed Discussed: Yes Circumcision: No INFORMED CONSENT Signature: with User ID: [email or web address]
[2019-04-27] MEDS ORDERED: MAGNESIUM HYDROXIDE SUSP 30 ML UDCUP PO PRN (13:29)
[2019-04-27] MEDS ORDERED: PSEUDOEPHEDRINE HCL 30 MG TABLET PO PRN (13:29)
[2019-04-27] MEDS ORDERED: DIPHENHYDRAMINE HCL 25 MG CAPSULE PO PRN (13:29)
[2019-04-27] MEDS ORDERED: MEASLES,MUMPS&RUBELLA VACC/PF 0.5 ML VIAL SUBCUT PRN (13:29)
[2019-04-27] MEDS ORDERED: DIBUCAINE 1% OINTMENT 56 GM TP PRN (13:29)
[2019-04-27] MEDS ORDERED: GLYCERIN/WITCH HAZEL LEAF 1 EACH MED..WIPE TP PRN (13:29)
[2019-04-27] MEDS ORDERED: PROMETHAZINE HCL INJ 25 MG/1 ML VIAL IV PRN (13:29)
[2019-04-27] MEDS ORDERED: ZOLPIDEM TARTRATE 5 MG TABLET PO PRN (13:29)
[2019-04-27] MEDS ORDERED: ACETAMINOPHEN 650 MG SUPP.RECT PR PRN (13:29)
[2019-04-27] MEDS ORDERED: BENZOCAINE/MENTHOL AEROSOL SPRAY 56 ML TOP PRN (13:29)
[2019-04-27] MEDS ORDERED: DIPH/PERTUSS(ACELL)/TETANUS VAC/PF 0.5 ML SYR (>=10YO) IM PRN (13:29)
[2019-04-27] MEDS ORDERED: PROMETHAZINE HCL 25 MG TABLET PO PRN (13:29)
[2019-04-27] MEDS ORDERED: PROMETHAZINE HCL 25 MG SUPP.RECT PR PRN (13:29)
[2019-04-27] MEDS ORDERED: OXYTOCIN/NORMAL SALINE 20 UNIT/1,000 ML RTUINJ IV PRN (13:29)
[2019-04-27] MEDS ORDERED: ACETAMINOPHEN WITH CODEINE #3 TABLET PO PRN (13:29)
[2019-04-27] MEDS ORDERED: NA PHOS,M-B/NA PHOS,DI-BA (ADULT) 133 ML ENEMA PR PRN (13:29)
[2019-04-27] MEDS ORDERED: IBUPROFEN 800 MG TABLET ONE (14:09)
[2019-04-27] MEDS: IBUPROFEN 800 MG TABLET PO SCH ×2 (14:10→22:13)
--- NOTE | 2019-04-27 15:18 | Warning Signs in Babies ---
VOD Warning Signs Datetime Report Generated by N: 04/27/2019 15:18 VOD#608 -Warning Signs in Babies: Viewed with Parent(s)/Family (04/27/2019 15:17:Ariadne Reynolds RN)
--- NOTE | 2019-04-27 15:26 | Delivery Summary ---
Del Sum A-C Datetime Report Generated by CPN: 04/27/2019 15:25 DELIVERY PERSONNEL DELIVERY PERSONNEL: [id number] Delivery Doctor:: Dapnhie Cabrera MD Labor and Delivery Nurse:: Ariadne Reynolds RNammunition assembly laborer Nurse:: Chelsea He RN Nursery Nurse:: Monisha Cortez RN Velvet Steamer/FURNACE INSTALLER HELPER: Selina Ross, ST MATERNAL INFORMATION Delivery Anesthesia: Epidural Medications After Delivery: Pitocin Bolus-Please Comment Meds After Delivery Comment: Pitocin 20 units IV Estimated Blood Loss (ml): 200 Delivery QBL: 200 Maternal Complications: None LABOR SUMMARY EDC: 04/20/2019 00:00 No. Babies in Womb: 1 Attempted: No Labor Anesthesia: Epidural LABOR INFORMATION Reason for Induction: Not Applicable Onset of Labor: 04/27/2019 05:20 Complete Dilatation: 04/27/2019 12:50 Oxytocin: N/A Group B Beta Strep: negative Antibiotics # of Doses: n/a Steroids Given: None Reason Steroids Not Administered: Not Applicable MEMBRANES Membranes Rupture Method: Spontaneous Rupture of Membranes: 04/27/2019 05:20 Length of Rupture (hr): 7.82 Amniotic Fluid Color: Clear Amniotic Fluid Amount: Small Amniotic Fluid Odor: Normal STAGES OF LABOR Stage 1 hr: 7 Stage 1 min: 30 Stage 2 hr: 0 Stage 2 min: 19 VAGINAL DELIVERY Episiotomy: None Laceration #1: Vaginal Laceration Extension #1: Second Degree Laceration Repair: Yes Laceration Repair Note: 2-0 chromic repair Sponge Count Correct: Yes BABY A INFORMATION Delivery Date/Time: 04/27/2019 13:09 Method of Delivery: Vaginal Born in Route : No : N/A Forceps: N/A Vacuum Extraction: N/A Shoulder Dystocia : No PRESENTATION/POSITION BABY A Presentation: Cephalic Cephalic Presentation: Vertex Vertex Position: Right Occipital Anterior Breech Presentation: N/A PLACENTA INFORMATION BABY A Placenta Method of Delivery: Spontaneous SCORES BABY A Heart Rate 1 min: >100 bpm Resp Effort 1 min: Good Cry Reflex Irritability 1 min: Cough or Sneeze or Pulls Away Muscle Tone 1 min: Active Motion Color 1 min: Body [place], Extremities Blue Resuscitation Effort 1 min: Tactile Stimulation SCORE 1 MIN: 9 Heart Rate 5 min: >100 bpm Resp Effort 5 min: Good Cry Reflex Irritability 5 min: Cough or Sneeze or Pulls Away Muscle Tone 5 min: Active Motion Color 5 min: Body [place], Extremities Blue Resuscitation Effort 5 min: Tactile Stimulation SCORE 5 MIN: 9 INFORMATION BABY A Gestational Age at Delivery: 41.0 Gestational Status: Late Term- 41- 41.6 Weeks Infant Outcome : Liveborn Condition : Stable Infant Sex: Male IDENTIFICATION BABY A Verification Date/Time: 04/27/2019 13:30 ID Band Number: [id number] Mother's Name Verified: Yes Infant RN Verifying Infant: Deborah Rodolfo CAM Additional Verifying Personnel: Chelsea He RN WEIGHT/LENGTH BABY A Infant Birthweight (gm): 3654 Weight (lb): 8 Infant Weight (oz): 1 Infant Length (in): 21.50 Length (cm): 54.61 CORD INFORMATION BABY A No. Cord Vessels: 3 Nuchal Cord : N/A Cord Blood Taken: Yes-For Storage (Mom's Blood type +) ASSESSMENT BABY A Infant Complications: None Physical Findings at Delivery: Within Normal Limits Infant Respirations: Appears Normal Skin to Skin: Yes Estimator Jewelry/ALS Called : No Care By: Brodie Cortez RN Transferred To: Remains with Mother BABY B INFORMATION : N/A SIGNATURES Signature: with User ID: Ayah
[2019-04-27] MEDS: FERROUS SULFATE 325 MG TABLET PO SCH (18:38)
[2019-04-27] MEDS: DOCUSATE SODIUM 100 MG CAPSULE PO SCH (18:38)
[2019-04-27] MEDS: FAMOTIDINE 20 MG TABLET PO SCH (22:13)
[2019-04-28] MEDS: ACETAMINOPHEN WITH CODEINE #3 TABLET PO PRN ×2 (03:09→21:27)
[2019-04-28] MEDS: IBUPROFEN 800 MG TABLET PO SCH ×3 (05:56→21:26)
[2019-04-28 07:00] LABS: HEMATOCRIT 32.9 % (36.0-47.0); MEAN CORPUSCULAR HEMOGLOBIN 24.8 pg (27.0-33.4); MEAN CORPUSCULAR HGB CONC 33.4 g/dL (32.0-36.0); MEAN CORPUSCULAR VOLUME 74 fl (80-97); PLATELET COUNT 165 10^3/uL (150-450); RED BLOOD COUNT 4.42 10^6/uL (3.72-5.28); RED CELL DISTRIBUTION WIDTH 15.6 % (11.5-14.0); WHITE BLOOD COUNT 8.1 10^3/uL (4.0-10.5)
[2019-04-28] MEDS: DOCUSATE SODIUM 100 MG CAPSULE PO SCH ×2 (09:04→17:18)
[2019-04-28] MEDS: FAMOTIDINE 20 MG TABLET PO SCH ×2 (09:04→21:26)
[2019-04-28] MEDS: PRENATAL VITAMIN W DHA CAPSULE PO SCH (09:04)
[2019-04-28] MEDS: SENNOSIDES/DOCUSATE 8.6-50 MG 1 EACH TABLET PO SCH (09:04)
[2019-04-28] MEDS: FERROUS SULFATE 325 MG TABLET PO SCH ×2 (09:04→17:17)
--- NOTE | 2019-04-28 09:34 | PDOC PROGRESS REPORT ---
Subjective-OB Progress Note for:: 04/28/19 Subjective: Pt doing well, no concerns. She reports light bleeding, reg diet and voiding without difficulty. Physical Exam (OB) Vital Signs: Temp Pulse Resp BP Pulse Ox 97.6 F 63 18 115/58 L 100 04/28/19 08:00 04/28/19 08:00 04/28/19 08:00 04/28/19 08:00 04/28/19 08:00 Intake & Output 04/27/19 04/28/19 04/29/19 06:59 06:59 06:59 Weight 125.7 kg - PIH/Pre-Eclampsia Clonus: Negative Headache: Absent Epigastric Pain: No Visual Changes: No - Lochia Lochia Amount: Scant < 10 ml Lochia Color: Rubra/Red - Abdomen Description: Soft Hernia Present: No Fundal Description: Firm, Midline Fundal Height: u/u - u/2 Objective-Diagnostic Laboratory: 04/28/19 06:41 04/27/19 04/27/19 04/28/19 09:25 09:25 06:41 WBC 9.5 8.1 RBC 4.72 4.42 Hgb 11.7 L 11.0 L Hct 35.0 L 32.9 L MCV 74 L 74 L MCH 24.8 L 24.8 L MCHC 33.4 33.4 RDW 15.6 H 15.6 H Plt Count 203 165 Seg Neutrophils % 54.8 Blood Type A POSITIVE Antibody Screen NEGATIVE Assessment and Plan(PN) - Assessment and Plan (1) Acute blood loss anemia Is this a current diagnosis for this admission?: Yes (2) Vaginal delivery Is this a current diagnosis for this admission?: Yes (3) Vaginal laceration Qualifiers: Vaginal laceration type: obstetric Perineal laceration presence: with perineal laceration Perineal laceration degree: second degree Qualified Code(s): O70.1 - Second degree perineal laceration during delivery Is this a current diagnosis for this admission?: Yes - Time Spent with Patient Time with patient: Less than 15 minutes Medications reviewed and adjusted accordingly: Yes - Disposition Anticipated Discharge: Home Within: within 24 hours
[2019-04-29] MEDS: IBUPROFEN 800 MG TABLET PO SCH ×2 (05:19→13:42)
[2019-04-29] MEDS: SENNOSIDES/DOCUSATE 8.6-50 MG 1 EACH TABLET PO SCH (09:07)
[2019-04-29] MEDS: FAMOTIDINE 20 MG TABLET PO SCH (09:08)
[2019-04-29] MEDS: FERROUS SULFATE 325 MG TABLET PO SCH (09:08)
[2019-04-29] MEDS: DOCUSATE SODIUM 100 MG CAPSULE PO SCH (09:08)
[2019-04-29] MEDS: PRENATAL VITAMIN W DHA CAPSULE PO SCH (09:08)
--- NOTE | 2019-04-29 13:41 | PDOC DISCHARGE SUMMARY ---
Impression - Admit/DC Date/PCP Admission Date/Primary Care Provider: 04/27/19 08:56 KATHE HANKINS MD Discharge Date: 04/29/19 - Discharge Diagnosis (1) Vaginal delivery Is this a current diagnosis for this admission?: Yes (2) Vaginal laceration Is this a current diagnosis for this admission?: Yes - Additional Information Discharge Diet: Regular Discharge Activity: Balance Activity w/Rest, Pelvic Rest Referrals: KATHE HANKINS MD [Primary Care Provider] - Prescriptions: Ibuprofen [Motrin 800 mg Tablet] 800 mg PO Q8HP PRN #60 tablet PRN Reason: Home Medications: 95/Iron Fum/Folic/Dha [ + Dha Combo Pack] 1 tab PO DAILY 01/30/17 Ibuprofen [Motrin 800 mg Tablet] 800 mg PO Q8HP PRN #60 tablet 04/29/19 HPI Gestational Age: 41 Reason(s) for Admission: Onset of Labor Procedures: Cerciage Intrapartum Procedure(s): Spontaneous Vaginal Delivery Complication(s): Laceration-Vaginal Laceration-Degree: 2nd Results Laboratory Results: WBC 8.1 10^3/uL (4.0-10.5) 04/28/19 06:41 RBC 4.42 10^6/uL (3.72-5.28) 04/28/19 06:41 Hgb 11.0 g/dL (12.0-15.5) L 04/28/19 06:41 Hct 32.9 % (36.0-47.0) L 04/28/19 06:41 MCV 74 fl (80-97) L 04/28/19 06:41 MCH 24.8 pg (27.0-33.4) L 04/28/19 06:41 MCHC 33.4 g/dL (32.0-36.0) 04/28/19 06:41 RDW 15.6 % (11.5-14.0) H 04/28/19 06:41 Plt Count 165 10^3/uL (150-450) 04/28/19 06:41 Lymph % (Auto) 37.5 % (13-45) 04/27/19 09:25 [place] % (Auto) 6.2 % (3-13) 04/27/19 09:25 Eos % (Auto) 1.1 % (0-6) 04/27/19 09:25 Baso % (Auto) 0.4 % (0-2) 04/27/19 09:25 Absolute Neuts (auto) 5.2 10^3/uL (1.7-8.2) 04/27/19 09:25 Absolute Lymphs (auto) 3.6 10^3/uL (0.5-4.7) 04/27/19 09:25 Absolute Monos (auto) 0.6 10^3/uL (0.1-1.4) 04/27/19 09:25 Absolute Eos (auto) 0.1 10^3/uL (0.0-0.6) 04/27/19 09:25 Absolute Basos (auto) 0.0 10^3/uL (0.0-0.2) 04/27/19 09:25 Seg Neutrophils % 54.8 % (42-78) 04/27/19 09:25 Urine Color YELLOW 04/27/19 08:06 Urine Appearance SLIGHTLY-CLOUDY 04/27/19 08:06 Urine pH 6.0 (5.0-9.0) 04/27/19 08:06 Ur Specific [place] 1.020 04/27/19 08:06 Urine Protein 30 mg/dL (NEGATIVE) H 04/27/19 08:06 Urine Glucose (UA) NEGATIVE mg/dL (NEGATIVE) 04/27/19 08:06 Urine Ketones NEGATIVE mg/dL (NEGATIVE) 04/27/19 08:06 Urine Blood LARGE (NEGATIVE) H 04/27/19 08:06 Urine Nitrite NEGATIVE (NEGATIVE) 04/27/19 08:06 Urine Bilirubin NEGATIVE (NEGATIVE) 04/27/19 08:06 Urine Urobilinogen 2.0 mg/dL (<2.0) H 04/27/19 08:06 Ur Leukocyte Esterase SMALL (NEGATIVE) H 04/27/19 08:06 Urine Ascorbic Acid NEGATIVE (NEGATIVE) 04/27/19 08:06 Membranes Rupture POSITIVE (NEGATIVE) H 04/27/19 08:06 Urine Opiates Screen NEGATIVE 04/27/19 08:06 Urine Methadone Screen NEGATIVE 04/27/19 08:06 Ur Barbiturates Screen NEGATIVE 04/27/19 08:06 Ur Phencyclidine Scrn NEGATIVE 04/27/19 08:06 Ur Amphetamines Screen NEGATIVE 04/27/19 08:06 U Benzodiazepines Scrn NEGATIVE 04/27/19 08:06 Urine Cocaine Screen NEGATIVE 04/27/19 08:06 U Marijuana (THC) Screen NEGATIVE 04/27/19 08:06 RPR NONREACTIVE (NONREACTIVE) 04/27/19 09:25 Blood Type A POSITIVE 04/27/19 09:25 Antibody Screen NEGATIVE 04/27/19 09:25 Plan Goals: f/u in 4 weeks at [facility] for pp check
[2019-04-29 13:59] VITALS: BP 115/58
== END 2019-04-29 14:30 | disposition home or self-care (01) | DRG 807 ==
LOC: LC 07:57 → LR 08:56 → 2S 16:39
PROVIDERS: ADMIT Obstetrics & Gynecology; ATTEND Obstetrics & Gynecology
PROC: 10E0XZZ Delivery of Products of Conception, External Approach (ICD-10-PCS; principal; 2019-04-27)
PROC: 0KQM0ZZ Repair Perineum Muscle, Open Approach (ICD-10-PCS; 2019-04-27)
DX: O48.0 Post-term pregnancy (principal); Z37.0 Single live birth; O99.02 Anemia complicating childbirth; D64.9 Anemia, unspecified; O70.1 Second degree perineal laceration during delivery; Z3A.41 41 weeks gestation of pregnancy
CPT/HCPCS: 36415; 80307; 81005; 84112; 85025; 85027; 86592; 86850; 86900; 86901; 94760; J2370; J2590; J3010; J3490